=== PATIENT | male | born 1955 | race Caucasian/White ===

== ENCOUNTER 2020-05-16 08:53 | Observation (INO) ==
--- NOTE | 2020-04-17 09:08 | PAT Medication Instructions ---
Medication Instructions Date of Service April 17, 2020 Home Medications Medication Instructions Recorded Tray Christina #1 ea 01/19/20 allopurinol 300 mg PO QAM clopidogrel [Plavix] 75 mg PO QAM metoprolol tartrate 25 mg PO QAM rosuvastatin 40 mg PO HS tamsulosin [Flomax] 0.4 mg PO QAM ASK your surgeon for instructions clopidogrel [Plavix] 75 mg PO QAM (in order for spinal anesthesia, clopidogrel/Plavix needs to be stopped 7 days before surgery. Please check if okay with doctor that prescribes this to you) Take morning of surgery With a small sip of water, OTHERWISE NOTHING TO EAT OR DRINK AFTER MIDNIGHT: allopurinol 300 mg PO QAM metoprolol tartrate 25 mg PO QAM tamsulosin [Flomax] 0.4 mg PO QAM Take evening before surgery rosuvastatin 40 mg PO HS Other Notes If you have any questions please call us at [phone] or [phone] or [phone] or [phone]
--- NOTE | 2020-04-17 13:10 | Anesthesiology Consultation ---
Date of Service April 17, 2020 Assessment & Plan (1) Encounter for pre-operative examination: COVID Status: As of 04/17 assessment, patient denies travel to endemic area, known exposure/sick contacts, or symptoms of COVID19. Patient instructed that they and their household members must follow strict social distancing guidelines, wear a mask in public and avoid travel for 14 days prior to surgery. Preoperative COVID19 testing to be completed prior to surgery per surgeon's arra ngsharmaine. Patient made aware to self-isolate as much as possible between COVID testing and surgery. Chart Review Chart Review: Acceptable Risk for Surgery (pending surgeon ordered cardio clearance, Bib 04/18) and Patient seen in Pre Admission Testing Teaching & Discussion Instructed NPO after midnight before surgery, except medications with 15 cc of water. Medication instructions provided according to the PAT guidelines. History Surgery Operation Date: 05/16/20 09:20 Proposed Procedures p Right Total Knee Arthroplasty - Wei Musa MD Height/Weight Height: 5 ft 9 in Weight: 102.1 kg Allergies Allergy/AdvReac Type Severity Reaction Status Date / Time aspirin AdvReac Unknown bleeding Verified 04/10/20 10:16 Medications Home Medications Medication Instructions Recorded Confirmed Last Taken Wheeled Walker #1 ea 01/19/20 01/19/20 Unknown allopurinol 300 mg PO QAM 04/10/20 04/10/20 Unknown clopidogrel [Plavix] 75 mg PO QAM 04/10/20 04/10/20 Unknown metoprolol tartrate 25 mg PO QAM 04/10/20 04/10/20 Unknown rosuvastatin 40 mg PO HS 04/10/20 04/10/20 Unknown tamsulosin [Flomax] 0.4 mg PO QAM 04/10/20 04/10/20 Unknown Past Medical History Medical History Acid reflux diet controlled BPH (benign prostatic hyperplasia) CAD (coronary artery disease) [place] with single stent placed, 2016 Gout Hyperlipidemia Myocardial infarction 2016 Osteoarthritis Right knee DJD Sleep apnea Mild per 01/2020 sleep study; unable to tolerate CPAP Exercise / Class Metabolic Activity II 4-5 Yardwork/Stairs/Walk up hill Past Family History Family History Father Diabetes Mother Diabetes Other No family history of adverse response to anesthesia Past Surgical History Surgical History H/O total hip arthroplasty R side, [facility] History of cardiac catheterization 2016 - [place] while on vacation in [place] - 1 stent -- follows w/ Dr. Mccartney History of colonoscopy History of heart artery stent x 1 History of nasal cauterization History of repair of ACL + MCL repair - Rt knee History of tooth extraction Past Anesthesia History No Hx of Anesthesia Complications and No Family Hx of Anesthesia Complications History of PONV No Hx of PONV and No Hx of Motion Sickness Social History Smoking Status: Former smoker Do You Dip or Chew Tobacco: No Smoking End Date: 25 years ago Hx Alcohol Use: Yes alcohol intake frequency: a few times a month Hx Substance Use: No substance use type: does not use Review of Systems Pt denies any recent chest pain, shortness of breath, palpitations, cough, fever, URI, or uncontrolled acid reflux. Physical Exam Vital Signs BP: 122/76 P: 64bpm SPO2: 96% RA T: 98.3 F R: 16 ENMT Mouth: + dental restorations (implants top sides); no chipped teeth and no loose teeth Thyromental Distance: > or= 3.5 Finger Breadths Mallampati Class: II Neck neck extension not limited Respiratory normal respiratory effort Auscultation: lungs clear to auscultation bilaterally Cardiovascular Rate/Rhythm: regular rate and regular rhythm Heart Sounds: no murmur Extremities: no edema Testing Laboratory Results 04/17/20 13:37 04/17/20 13:37 PT 10.8 Seconds (9.0-12.0) 04/17/20 13:37 INR 1.0 (0.9-1.1) 04/17/20 13:37 APTT 29.6 Seconds (21.0-31.0) 04/17/20 13:37 Blood Type O Positive 04/17/20 13:37 Antibody Screen NEGATIVE 04/17/20 13:37 Electrocardiogram Date: 10/26/19 Findings: + SB @ (57bpm) iRBBB. Chest X-Ray Date: 04/17/20 Findings: + NAD Echocardiogram Date: 04/22/16 EF: 57% Normal LV chamber size with mild concentric LVH. Normal LV systolic function. Mild hypokinesis of the mid and distal anteroseptal mcqueen, otherwise normal wall motion. Grade 2 diastolic dysfunction. Mild aortic valve sclerosis without stenosis, mild aortic regurgitation. Aortic root is borderline enlarged. The proximal ascending thoracic aorta is mildly enlarged. Stress Test Date: 07/06/16 Type: nuclear Resting EF: 53% Exercise stress nuclear cardiac stress test negative for ischemia. Gated SPECT imaging reveals normal myocardial thickening and wall motion..
--- NOTE | 2020-04-17 14:12 | XRay Report ---
XR chest Pre-admission PA/Lat CLINICAL HISTORY: Preoperative chest COMPARISON STUDY: 02/04/2015 FINDINGS: The cardiac and mediastinal contours are normal. There is no evidence of focal pulmonary co nsolidation. There is no evidence of failure. No pleural effusions are visualized.[ IMPRESSION: No active disease in the chest. ACT 112: Negative or not required by law. Electronically signed by: Alexis Mendez M.D. 04/17/2020 2:11 PM
[2020-04-17 14:41] LABS: Basophils # (auto) 0.03 K/uL (0-0.2); Basophils % (auto) 0.6 %; Eosinophils # (auto) 0.14 K/uL (0-0.5); Eosinophils % (auto) 2.6 %; Hematocrit (blood only) 42.9 % (42-52); Hemoglobin 14.3 g/dL (14.0-18.0); Immature Granulocytes # (auto) 0.01 K/uL (0.00-0.02); Immature Granulocytes % (auto) 0.2 %; Lymphocytes # (auto) 1.51 K/uL (1.2-3.4); Mean Corpuscular Hemoglobin 25.8 pg (25-34); Mean Corpuscular Hgb Conc 33.3 g/dL (32-36); Mean Corpuscular Volume 77.3 fL (80-100); Mean Platelet Volume 11.4 fL (7.4-10.4); Monocytes # (auto) 0.35 K/uL (0.11-0.59); Monocytes % (auto) 6.5 %; Neutrophils # (auto) 3.36 K/uL (1.4-6.5); Neutrophils % (auto) 62.1 %; Platelet Count 160 K/uL (130-400); RDW Coefficient of Variation 15.4 % (11.5-14.5); RDW Standard Deviation 43.9 fL (36.4-46.3); Red Blood Count 5.55 M/uL (4.7-6.1)
[2020-04-17 14:52] LABS: BUN Creatinine Ratio 13.8 (10-20); Blood Urea Nitrogen 11 mg/dl (7-18); C Reactive Protein < 0.29 mg/dl (0-0.29); Calcium 9.1 mg/dl (8.5-10.1); Carbon Dioxide 24 mmol/L (21-32); Chloride 110 mmol/L (98-107); Creatinine Clr Calc Pharmacy 111.3 ml/min; Est GFR (African American) 110.2; Est GFR (Non-African American) 95.1; Glucose 97 mg/dl (70-99); Potassium 4.4 mmol/L (3.5-5.1); Sodium 140 mmol/L (136-145)
[2020-04-17 14:54] LABS: Partial Thromboplastin Ratio 1.1; Partial Thromboplastin Time 29.6 Seconds (21.0-31.0); Prothrombin Time 10.8 Seconds (9.0-12.0)
--- NOTE | 2020-05-08 13:47 | History and Physical Report ---
DATE OF ADMISSION: 05/16/2020 CHIEF COMPLAINT: Right knee pain and discomfort. HISTORY OF PRESENT ILLNESS: The patient is a 65-year-old fairly active gentleman who is well known to me from a previous left hip replacement done about 5 years ago. He now presents for surgical treatment of his right knee. He has a history of an ACL/MCL repair/reconstruction about 10 years ago. Over the past several years, he has developed increased pain, discomfort and stiffness in his knee. We have treated him with injections, which helped for only a couple weeks at best. Some days are pretty manageable and other days he has difficulty walking at all. He has tried to maintain an active lifestyle, but having difficulty doing this. No instability. Mostly just pain and swelling and stiffness. He cannot take NSAIDs due to some heart issues and stent placement. PAST MEDICAL HISTORY: Significant for: 1. Coronary artery disease status post PA in 2015 with cardiac stent placement and now off Plavix and on baby aspirin. 2. Sleep apnea. 3. Arthritis. 4. Gastroesophageal reflux disease. 5. Mild obesity with BMI of 33. PAST SURGICAL HISTORY: Include: 1. Right ACL/MCL 10 plus years ago. 2. Cardiac stent placement 2015. 3. Left total hip replacement 5 years ago. 4. Risk/carpal tunnel surgery. ALLERGIES: ASPARTAME. CURRENT MEDICINES: Include: 1. Flomax. 2. Allopurinol. 3. Rosuvastatin. 4. Lopressor. 5. Baby aspirin. SOCIAL HISTORY: A 64-year-old male. He is . Does not smoke. FAMILY HISTORY: Noncontributory. REVIEW OF SYSTEMS: Significant for cardiac stent placement. Denies any current chest pain or shortness now. No history of DVT or PE. No known bleeding problems. PHYSICAL EXAMINATION GENERAL: Shows a pleasant, middle-aged male, looks to be in reasonably good health. HEENT: Benign. NECK: Supple, no lymphadenopathy. LUNGS: Clear to auscultation. HEART: Has a regular rate and rhythm. ABDOMEN: Soft, nontender, nondistended. EXTREMITIES: Grossly neurovascularly intact except as follows. Examination of the right knee reveals a patient who walks with just a slight bit of a limp. He has got a well-healed incision over the far medial side of his knee. He has got a small knee effusion. Fairly neutral alignment. Range of motion about 5 degrees short of full extension to 125 degrees of flexion. There is no instability. No pain with hip motion. X-RAYS: X-rays of the right knee reviewed. Shows advanced right knee DJD. He has got evidence of previous ACL reconstruction. He has got cystic changes in the tibia. He has got patellofemoral arthritis. ASSESSMENT: A 65-year-old male with history of right ACL/MCL repair in the past with advanced right knee tricompartment degenerative joint disease. He has failed conservative treatment. It is affecting his quality of life and he would like to have it fixed. PLAN: We will take him to the operating room and do right total knee replacement. The risks and benefits of this procedure were explained to the patient including but not limited to DVT, PE, , infection, neurological injury, vascular injury, bleeding problem, pain, limited range of motion, stiffness, persistent pain, etc. The patient understands and desires to proceed. Informed consent was obtained. He is now off his Plavix and on a baby aspirin. We will use that for DVT prophylaxis. We will put some vancomycin in his cement due to his previous surgeries. He is planning to be discharged to home using [facility] home health program.
[2020-05-12 12:21] LABS: SARS CoV2 RNA (COVID-19) NOT DETECTED (NOT DETECTED)
[~2020-05-16 08:53] MED LIST: ACETAMINOPHEN 500 MG TAB PO SCH; BUPIVACAINE 0.5 % 5 MG/1 ML PF 10ML VIAL ONE; BUPIVACAINE LIPOSOME/PF 266 MG, BUPIVACAINE/EPINEPHRINE 50 ML, SODIUM CHLORIDE 0.9% 30 ... INFIL SCH; CEFAZOLIN 2000MG 2,000 MG/15 ML SYR IV SCH; FAMOTIDINE 20 MG TAB PO SCH; GABAPENTIN 600 MG DOSE PO SCH; LR 500ML BOLUS, THEN 15ML/HR IV SCH; LR 60ML/HR IV SCH; METOCLOPRAMIDE HCL 10 MG TABLET PO SCH; ROPIVACAINE 0.5% 5 MG/ML 30 ML VIAL ONE; TRANEXAMIC ACID 1,000 MG **IV Intra-op IV SCH
--- NOTE | 2020-05-16 09:08 | History & Physical Bridge Note ---
Date of Service May 16, 2020 History & Physical Bridge Note I have examined the patient, reviewed the History & Physical and in the interval since the performance of the History & Physical I have noted the following changes of clinical significance: no changes noted
[2020-05-16] MEDS ORDERED: PROPOFOL IV EMULSION 10 MG/ML 20 ML VIAL IV ONE (09:40)
[2020-05-16] MEDS ORDERED: LIDOCAINE HCL 2% 2 ML VIAL/AMP(20MG/ML) INFIL ONE (09:40)
[2020-05-16] MEDS ORDERED: MIDAZOLAM HCL 1 MG/ML 2ML VIAL ONE (09:41)
[2020-05-16] MEDS ORDERED: SODIUM CHLORIDE 0.9% PF 50 ML VIAL ONE (10:10)
[2020-05-16] MEDS ORDERED: EPINEPHrine INJ 1 MG/ML AMP ONE (10:11)
[2020-05-16] MEDS ORDERED: BACITRACIN INJ 50,000 UNIT VIAL ONE (10:11)
[2020-05-16] MEDS ORDERED: BUPIVACAINE LIPOSOME 1.3% 266 MG/20 ML VIAL ONE (10:11)
[2020-05-16] MEDS ORDERED: BUPIVACAINE 0.25% 30 ML VIAL ONE (10:12)
[2020-05-16] MEDS ORDERED: fentaNYL citrate 100 MCG/2 ML VIAL IV PRN (10:39)
[2020-05-16] MEDS ORDERED: HYDROmorphone INJ 2 MG/ML SYR/VIAL IV PRN (10:39)
[2020-05-16] MEDS ORDERED: ePHEDrine sulfate 50 MG/ML AMP IV PRN (10:39)
[2020-05-16] MEDS ORDERED: ONDANSETRON INJ 2 MG/ML 2 ML VIAL IV PRN ×2 (10:39→14:30)
[2020-05-16] MEDS ORDERED: ATROPINE SULFATE 0.1 MG/ML 10ML SYR IV PRN (10:39)
[2020-05-16] MEDS ORDERED: VANCOMYCIN HCL 1000MG/20ML VIAL ONE (10:39)
[2020-05-16] MEDS ORDERED: KETAMINE HCL INJ 50 MG/ML 10 ML VIAL ONE (11:15)
--- NOTE | 2020-05-16 12:49 | Post Operative Brief Note ---
PG Immediate Post Op with CF Date of Surgery May 16, 2020 Pre & Post Diagnosis Operation Date: 05/16/20 10:55 Pre-Op Diagnosis: Right Knee Degenerative joint disease Post-Op Diagnosis: Right Knee Degenerative joint disease I identified the patient and participated in the time-out.: Yes Procedure Operation Date: 05/16/20 10:55 Actual Procedures p Right Total Knee Arthroplasty(Right) - Wei Musa MD Surgeon Wei Musa MD Acetylene Burner Stacey, PAC Estimated Blood Loss 50 Findings Consistent with Post-Op Diagnosis Fluids 1700 cc Specimens Specimen Description: A: Right Knee bone and tissue Drains Valadez Catheter (inserted by Lester REGAN with out difficulty) Anesthesia Type Spinal MAC Complications none Disposition Accompanied Patient To Recovery: No Disposition: Recovery Room
--- NOTE | 2020-05-16 13:28 | XRay Report ---
XR knee RT 1 or 2V routine CLINICAL HISTORY: Postoperative evaluation. COMPARISON: Knee radiographs October 09, 2019. FINDINGS: Alignment of the total right knee arthroplasty is anatomic. There is no periprosthetic fra cture or unexpected radiopaque foreign body. There are skin marco. IMPRESSION: Expected findings following total right knee arthroplasty. ACT 112: Negative or not required by law. Electronically signed by: Rojelio You M.D. 05/16/2020 1:26 PM
--- NOTE | 2020-05-16 14:03 | Anesthesiology Progress Note ---
Date of Service May 16, 2020 Anesthesia Post Procedure Vital Signs Vital Signs: Temp Pulse Pulse Resp BP BP Pulse Ox 05/16/20 13:53 36.6 C 44 L 15 94/71 L 97 05/16/20 13:35 36.6 C 45 L 15 101/68 95 05/16/20 13:25 51 L 15 105/68 94 05/16/20 13:15 57 L 14 98/68 L 94 05/16/20 13:05 71 18 93/70 L 94 05/16/20 12:56 36.8 C 62 15 92/68 L 94 05/16/20 10:04 54 L 18 115/76 96 05/16/20 09:34 37.1 C 60 18 117/87 97 Pain Intensity Right Knee: Pain Intensity: 2 Left Shoulder: Pain Intensity: 3 Transfer of Care Handoff Completed per policy Notes Mental Status: alert / awake / arousable and participated in evaluation Patient Amnestic to Procedure: Yes Nausea / Vomiting: adequately controlled Pain: adequately controlled Airway Patency, RR, SpO2: stable & adequate BP & HR: stable & adequate Hydration State: stable & adequate Neuraxial Anesthesia: was administered and sensory block is resolving Anesthetic Complications: no major complications apparent
[2020-05-16] MEDS ORDERED: MAGNESIUM HYDROXIDE SUSP 30 ML UDC PO PRN (14:30)
[2020-05-16] MEDS ORDERED: ALUMINUM/MAGNESIUM SUSP 30 ML UDC PO PRN (14:30)
[2020-05-16] MEDS ORDERED: bisacodyL 10 MG SUPP PR PRN (14:30)
[2020-05-16] MEDS ORDERED: OXYCODONE HCL IR 5 MG TAB (IMMEDIATE RELEASE) PO PRN (14:30)
[2020-05-16] MEDS ORDERED: NALOXONE HCL 0.4 MG/1 ML VIAL/CARP IV PRN (14:30)
[2020-05-16] MEDS ORDERED: METOCLOPRAMIDE HCL INJ 5 MG/ML 2 ML VIAL IV PRN (14:30)
[2020-05-16] MEDS ORDERED: HYDROmorphone INJ 0.5 MG/0.5 ML SYR IV PRN (14:30)
[2020-05-16] MEDS: ACETAMINOPHEN 500 MG TAB PO SCH ×2 (14:47→22:14)
[2020-05-16] MEDS: Scopolamine CHECK PATCH PLACEMENT SCH ×2 (15:53→23:30)
[2020-05-16] MEDS: KETOROLAC 30 MG/ML VIAL IV SCH ×2 (15:54→22:14)
[2020-05-16] MEDS: SODIUM CHLORIDE 0.9% 1000ML 1,000 ML IV SCH ×2 (15:57→23:30)
[2020-05-16] MEDS ORDERED: TRANEXAMIC ACID / 0.7% NACL 1,000 MG/100 ML BAG IV SCH (18:52)
--- NOTE | 2020-05-16 18:53 | Operative Report ---
Post Operative Report Pre & Post Diagnosis Operation Date: 05/16/20 10:55 Pre-Op Diagnosis: Right Knee Degenerative joint disease Post-Op Diagnosis: Right Knee Degenerative joint disease I identified the patient and participated in the time-out.: Yes Procedure Operation Date: 05/16/20 10:55 Actual Procedures p Right Total Knee Arthroplasty(Right) - Wei Musa MD Surgeon Wei Musa MD Putty Patcher Stacey, PAC Estimated Blood Loss 50 Findings Consistent with Post-Op Diagnosis Operative findings revealed advanced right knee DJD with extensive grade 4 [id number] disease of the medial compartment as well as patellofemoral compartments. He had less severe disease laterally. He had a moderate-sized joint effusion. He had some retained hardware including a plastic button from the ACL fixation. He had a hemorrhagic synovitis. Fluids 1700 cc. Specimens Right knee sent for pathology. Also send synovium for pathology due to the color and appearance of the synovium. Drains None. Anesthesia Type Spinal MAC Complications none Disposition Accompanied Patient To Recovery: No Disposition: Recovery Room Indications Patient is a 64-year-old very active gentleman is had a long history of some right knee problems. He had a right ACL reconstruction and MCL repair done at [facility] 10+ years ago. Over the past 5 to 10 years he developed increased pain discomfort in his right knee. He is failed all conservative measures. X- rays show advanced right knee DJD. He elected proceed with surgical treatment. Description of Procedure Operative implants consist of: 1. Biomet Vanguard size 65 right posterior stabilized femoral component. 2. Biomet size 75 tibial tray. 3. 12 mm posterior stabilized polyethylene insert. 4. 31 x 8 all poly-patella. The patient was taken to the operating room identified and placed on the operating table supine position protectors were properly padded. IV antibiotics arrived by anesthesia team. A spinal anesthetic and abductor canal block had been divided in the holding area. Valadez catheter was placed in sterile fashion. Right thigh turn was then placed in the right lower extremity was then prepped and draped in usual sterile fashion. The right leg was elevated exsanguinated with use of an Esmarch and turn was placed at 300 mmHg. An anterior approach to the right knee was then performed to longitudinal incision centered over the patella. Sharp dissection was got th rough subcutaneous tissue down to the extensor mechanism. A medial parapatellar arthrotomy incision was made. Some subperiosteal dissection was carried out medially. Upon doing this dissection there was a plastic button which was used for the ACL fixation. This was removed. The fat pad was resected from each patella tendon. The lateral patellofemoral ligament was released. The patella was subluxated laterally and the knee was flexed. The osteophytes were taken off the distal femur. The ACL and PCL were then released from distal femur and the tibia subluxate anteriorly. The external tibial alignment jig was then placed in the interface the tibia and adjusted 14 mm medially. The proximal tibial cut was made remove about 2 mm of bone from most efficient aspect the medial tibial plateau. Some osteophytes were taken off medial and posterior medially. The tibia sized to a size 75. Attention drawn to the femur. The distal femur was entered with a sharp drill. The intramedullary canal was suction. A right 6 degree valgus cutting guide was placed. Distal femoral cutting block was pinned in place. Distal femoral cut was made to take an additional 3 mm of bone off distal femur. The femur was then sized to a size 65. The AP cutting block was pinned parallel to the epicondylar axis which was 3 degrees of external rotation. The anterior cut, anterior chamfer, posterior cut, posterior chamfer cuts were made. Box cutting guide was placed in just slight lateral box cut was made. The knee was flexed. The remnants of the medial lateral menisci were excised. The osteophytes were taken off the posterior aspect the femur. A trial femoral component was placed. The tibial tray was pinned in maximum external rotation and the drill and stem punch were used to create defect in proximal to for the tibial tray. The knee was then trialed the 12 mm insert fit most appropriately. Attention drawn to the patella. The patella was cleaned of all soft tissues. Patella thickness measured 23 mm in thickness and was cut down to 14. Was sized to a size 31 patella. The lug holes were drilled for 31 patella. The lateral osteophyte is moved. Patella button was placed. Knee was taken through range of motion patella tracked nicely with no thumbs test. Attention was then drawn toward placed in the permanent components. All trial components were removed. A bone plug was placed in the distal femur limit blood loss put a double batch Palacos G cement was mixed. I did add an additional gram of vancomycin due to the history of previous open surgery in this knee. A Biomet Vanguard size 65 right posterior stabilized femoral component, a size 75 tibial tray, a 12 mm posterior box polyethylene insert, and a 31 x 8 all poly-patella were then cemented in place. The knee was brought out into full extension until cement hardened. Final cement check was then performed. The pericapsular tissues were injected with total 100 cc of combination of 20 cc of Exparel, 30 cc normal saline, 50 cc of quarter percent Marcaine with epinephrine. Patient did receive 1 g tranexamic acid per the tech was then let down for final tourniquet time of 65 minutes. Hemostasis assured use electrocautery. Extensor mechanism closed with combination 1 PDS suture #1 Vicryl suture in [id number] fashion. The extensor mechanism checked found to be intact the subcutaneous tissue then closed with 2 Dexon suture in a buried interrupted fashion skin was closed skin marco. Leg was then cleaned dried a sterile dressing composed Xeroform, 4 x 4's, sterile cast padding, Jaime bandage were applied. Patient then transferred to the recovery room in stable condition. The patient tolerated procedure well and there were no complications. Lester Ibarra, my physician curriculum assistant, was present for the entire procedure. His assistance was essential and required for appropriate patient positioning, prepping and draping, surgical exposure, performing the technical details the operation, placement the implants, closure of the wound, and placement of the sterile bandage. I attest to the content of the Intraoperative Record and any orders documented therein. Any exceptions are noted below.
[2020-05-16] MEDS: ASCORBIC ACID 500 MG TAB PO SCH (19:10)
[2020-05-16] MEDS: TAPENTADOL HCL ER 50 MG TABCR PO SCH (20:12)
[2020-05-16] MEDS: CEFAZOLIN 2000MG 2,000 MG/15 ML SYR IV SCH (20:13)
[2020-05-16] MEDS: DOCUSATE SODIUM 100 MG CAP PO SCH (20:13)
[2020-05-16] MEDS: ASPIRIN 81 MG ECTAB PO SCH (20:13)
[2020-05-16] MEDS ORDERED: SENNA 8.6 MG TAB PO SCH (21:00)
[2020-05-16] MEDS ORDERED: ROSUVASTATIN CALCIUM 20 MG TAB PO SCH (21:00)
[2020-05-17] MEDS: CEFAZOLIN 2000MG 2,000 MG/15 ML SYR IV SCH (03:53)
[2020-05-17] MEDS: KETOROLAC 30 MG/ML VIAL IV SCH ×2 (03:54→09:52)
[2020-05-17 05:52] LABS: Hematocrit (blood only) 36.5 % (42-52); Hemoglobin 12.2 g/dL (14.0-18.0); Mean Corpuscular Hemoglobin 26.1 pg (25-34); Mean Corpuscular Hgb Conc 33.4 g/dL (32-36); Mean Corpuscular Volume 78.2 fL (80-100); Mean Platelet Volume 11.4 fL (7.4-10.4); Platelet Count 131 K/uL (130-400); RDW Coefficient of Variation 15.6 % (11.5-14.5); RDW Standard Deviation 44.7 fL (36.4-46.3); Red Blood Count 4.67 M/uL (4.7-6.1)
[2020-05-17] MEDS: ACETAMINOPHEN 500 MG TAB PO SCH (06:07)
[2020-05-17 06:22] LABS: Calcium 7.8 mg/dl (8.5-10.1); Creatinine Clr Calc Pharmacy 125.5 ml/min; Est GFR (African American) 115.7; Est GFR (Non-African American) 99.9
[2020-05-17] MEDS ORDERED: Nursing to Pharmacy Communication SCH (07:30)
--- NOTE | 2020-05-17 08:30 | Progress Notes ---
DATE: 05/17/2020 SUBJECTIVE: A 65-year-old gentleman postop day 1 from a right knee replacement. He is doing pretty well. Had a pretty good night. Pain has been controlled. No chest pain or shortness of breath. Not feeling dizzy or lightheaded. OBJECTIVE: VITAL SIGNS: Temperature 36.7. Vital signs stable. GENERAL: Physical examination shows a pleasant, middle-aged male. He is sitting up in bed, looks comfortable. LUNGS: Clear to auscultation. HEART: Regular rate and rhythm. ABDOMEN: Soft, nontender, nondistended. EXTREMITIES: Grossly neurovascularly intact except as follows. Examination of the right leg reveals the leg to be well aligned. Dressing is clean, dry and intact. He can dorsiflex and plantarflex his foot appropriately. He is neurologically intact. LABORATORY DATA: Hemoglobin 12.2. Hematocrit 36.7. Electrolytes are stable. ASSESSMENT: A 65-year-old gentleman postop day 1 from a right knee replacement, doing pretty well. Pain is controlled. He is neurologically intact. PLAN: 1. DVT prophylaxis include thigh-high TEDs, SCDs, and aspirin twice a day. 2. PT/OT, weight bear as tolerated. Right total knee protocol. 3. Pain control, doing well with current pain regimen. 4. Disposition: Plan to discharge to home with some home health once medically stable, adequately recovered, and pain controlled.
[2020-05-17] MEDS: ASCORBIC ACID 500 MG TAB PO SCH (08:32)
[2020-05-17] MEDS: ASPIRIN 81 MG ECTAB PO SCH (08:32)
[2020-05-17] MEDS: Scopolamine CHECK PATCH PLACEMENT SCH (08:33)
[2020-05-17] MEDS: DOCUSATE SODIUM 100 MG CAP PO SCH (08:33)
[2020-05-17] MEDS: TAPENTADOL HCL ER 50 MG TABCR PO SCH (08:35)
[2020-05-17] MEDS ORDERED: allopurinoL 300 MG TAB PO SCH ×2 (09:00→21:00)
[2020-05-17] MEDS ORDERED: TAMSULOSIN HCL 0.4 MG CAP PO SCH (09:00)
[2020-05-17] MEDS ORDERED: MULTIVITAMIN TAB PO SCH (09:00)
[2020-05-18] MEDS ORDERED: CeleBREX 200 MG CAP PO SCH (21:00)
--- NOTE | 2020-05-20 06:33 | Discharge Summary ---
Date of Service May 20, 2020 Admission HPI Per Admitting Provider Documented in the H & P Admission Exam (Per Admitting) Constitutional Documented in the H & P Discharge Data Consultations 05/16/20 14:30 Consult Case Management - Discharge Planning Routine Procedures Performed Operation Date: 05/16/20 10:55 Actual Procedures p Right Total Knee Arthroplasty(Right) - Wei Musa MD Hospital Course (1) Status post total right knee replacement: This patient is a 65 year old male admitted on 05/16/20 and underwent total knee arthroplasty. He tolerated the procedure well and there were no complications. Transferred to the PACU post op and later to the orthopedic floor for further care. He was given ancef for antibiotic prophylaxis. He was also given ILENE stockings, SCDs, and aspirin for DVT prophylaxis. Hemoglobin, hematocrit, and vital signs were monitored during his hospital stay and remained stable. Did not require any blood transfusions. There were no complications during his hospital stay. By post op day #1 the patient was tolerating a regular diet, pain was reasonably controlled with oral pain medicine, and he was participating in physical therapy. On post op day #1 the patient was discharged home and set up with home health care. He was given printed discharge instructions including prescriptions for extra strength tylenol, aspirin, and oxycodone. Continue physical therapy, weight bearing as tolerated. Continue ILENE stockings. Follow up approximately 2 weeks post op or sooner if there are problems or concerns. Coding Level of Care Code None Diagnoses Status post total right knee replacement Z96.651
[2020-05-29] MEDS ORDERED: INFLUENZA VIRUS QUAD VACCINE 0.5 ML SYR IM ONE (14:35)
[2020-05-29] MEDS ORDERED: INFLUENZA ADMINISTRATION CHARGE ONE (14:35)
== END 2020-05-17 13:48 | disposition home health service (06) ==
LOC: ASU 08:53 → 3E 08:53